=== PATIENT | female | born 1995 | race Hispanic/Latino ===

== ENCOUNTER 2018-12-24 00:50 | Emergency (ER) | payer BC ==
[2018-12-24 01:12] VITALS: BP 108/69
[2018-12-24 01:45] LABS: Mean Corpuscular HGB Conc 34 % (30-34); Mean Corpuscular Volume 93 fl (79-97); Platelet Count 167 K/mm3 (140-440); Red Blood Count 4.09 M/mm3 (3.65-5.03); Red Cell Distribution Width 12.3 % (13.2-15.2)
[2018-12-24 01:58] LABS: Bacteria,Urine 2+ /HPF (Negative); Bilirubin,Urine NEG (Negative); Blood,Urine SM (Negative); Color,Urine Amber (Yellow); Hyaline Casts,Urine 2 /LPF; Mucus,Urine 3+ /HPF
[2018-12-24 02:07] LABS: Alanine Aminotransferase 18 units/L (7-56); Albumin 4.4 g/dL (3.9-5); BUN/Creatinine Ratio 15; Blood Urea Nitrogen 12 mg/dL (7-17); Hemolysis Index 20
[2018-12-24 02:25] LABS: Total Cells Counted 100
[2018-12-24 02:26] LABS: RBC Morphology Normal
[2018-12-24] MEDS ORDERED: PEPCID IV ONE (03:20)
[2018-12-24] MEDS ORDERED: NACL 0.9% 1000 ML 1,000 ML IV ONE (03:20)
[2018-12-24] MEDS ORDERED: LOMOTIL PO ONE (03:20)
[2018-12-24] MEDS ORDERED: ZOFRAN IV ONE (03:20)
[2018-12-24] MEDS ORDERED: BENTYL IM ONE (03:21)
--- NOTE | 2018-12-24 05:07 | Emergency Department Report ---
ED N/V/D HPI - General Chief complaint: Abdominal Pain Stated complaint: ABDOMINAL PAIN Source: patient Mode of arrival: Ambulatory Limitations: No Limitations - History of Present Illness Initial comments: Patient is a nulliparous 23-year-old white female with no past medical history presents to the ED with complaint of acute onset persistent intermittent nausea, vomiting, diarrhea, sore throat and epigastric pain for the last 12 hours. Patient states that she is not been able to keep anything down because of persistent nausea and vomiting and diarrhea. Patient denies dizziness, lightheadedness, syncope, headache, chest pain, shortness of breath, cough, dysuria, urinary frequency and urgency, vaginal bleeding, hematemesis, hematuria diarrhea, vaginal discharge, change in vision or hematochezia. MD complaint: nausea, vomiting, diarrhea, abdominal pain -: Sudden, hour(s) (12) Description of Vomiting: food contents, watery, bilious Description of Diarrhea: water Associated Abdominal Pain: Yes (epigastric) Location: epigastric Radiation: none Severity: moderate Pain Scale: 6 Quality: cramping, aching, dull Consistency: intermittent Improves with: none Worsens with: eating, vomiting Context: possible food poisoning Associated Symptoms: myalgias, loss of appetite, malaise, nausea/vomiting, other (sore throat). denies: denies other symptoms, chest pain, cough, diaphoresis, fever/chills, headaches, rash, dysuria, shortness of breath, syncope, weakness - Related Data Previous Rx's Medication Instructions Recorded Last Taken Type Dicyclomine [Bentyl] 20 mg PO Q6H PRN #24 tablet 12/24/18 Unknown Rx Diphenoxylate/Atropine [Lomotil] 1 - 2 tab PO Q4H PRN #20 tablet 12/24/18 Unknown Rx Ondansetron [Zofran Odt] 4 mg PO Q6HR PRN #20 tab.rapdis 12/24/18 Unknown Rx raNITIdine HCl [Zantac] 150 mg PO Q12H #24 tablet 12/24/18 Unknown Rx Allergies Allergy/AdvReac Type Severity Reaction Status Date / Time cefdinir Allergy Dizziness Verified 12/24/18 01:08 ED Review of Systems ROS: Stated complaint: ABDOMINAL PAIN Other details as noted in HPI Constitutional: denies: chills, fever Eyes: denies: eye pain, eye discharge, vision change ENT: denies: ear pain, throat pain Respiratory: denies: cough, shortness of breath, wheezing Cardiovascular: denies: chest pain, palpitations Endocrine: no symptoms reported Gastrointestinal: abdominal pain, nausea, vomiting, diarrhea Genitourinary: denies: urgency, dysuria, discharge Musculoskeletal: denies: back pain, joint swelling, arthralgia Skin: denies: rash, lesions Neurological: denies: headache, weakness, paresthesias Psychiatric: denies: anxiety, depression Hematological/Lymphatic: denies: easy bleeding, easy bruising ED Past Medical Hx - Past Medical History Previous Medical History?: Yes Hx Kidney Stones: Yes - Surgical History Past Surgical History?: No - Social History Smoking Status: Never Smoker Substance Use Type: None - Medications Home Medications: Home Medications Medication Instructions Recorded Confirmed Last Taken Type Dicyclomine [Bentyl] 20 mg PO Q6H PRN #24 tablet 12/24/18 Unknown Rx Diphenoxylate/Atropine [Lomotil] 1 - 2 tab PO Q4H PRN #20 tablet 12/24/18 Unknown Rx Ondansetron [Zofran Odt] 4 mg PO Q6HR PRN #20 tab.rapdis 12/24/18 Unknown Rx raNITIdine HCl [Zantac] 150 mg PO Q12H #24 tablet 12/24/18 Unknown Rx ED Physical Exam - General Limitations: No Limitations General appearance: alert, in no apparent distress - Head Head exam: Present: atraumatic, normocephalic, normal inspection - Eye Eye exam: Present: normal appearance, PERRL, EOMI Pupils: Present: normal accommodation - ENT ENT exam: Present: normal exam, normal orophraynx, mucous membranes moist, TM's normal bilaterally, normal external ear exam - Neck Neck exam: Present: normal inspection, full ROM - Respiratory Respiratory exam: Present: normal lung sounds bilaterally. Absent: respiratory distress, wheezes, rales, stridor, chest wall tenderness, accessory muscle use, decreased breath sounds - Cardiovascular Cardiovascular Exam: Present: regular rate, normal rhythm, normal heart sounds. Absent: systolic murmur, diastolic murmur, rubs, gallop - GI/Abdominal GI/Abdominal exam: Present: soft, normal bowel sounds. Absent: tenderness, guarding, rebound, hyperactive bowel sounds, organomegaly - Rectal Rectal exam: Present: deferred - Bi-manual exam: Present: other (deferred) - Extremities Exam Extremities exam: Present: normal inspection, normal capillary refill - Back Exam Back exam: Present: normal inspection, full ROM. Absent: CVA tenderness (L), muscle spasm, paraspinal tenderness, vertebral tenderness - Neurological Exam Neurological exam: Present: alert, oriented X3, CN II-XII intact, normal gait, reflexes normal - Psychiatric Psychiatric exam: Present: normal affect, normal mood - Skin Skin exam: Present: warm, dry, intact, normal color. Absent: rash ED Course Vital Signs 12/24/18 00:55 Temperature 97.3 F L Pulse Rate 80 Respiratory 14 Rate Blood Pressure 108/69 O2 Sat by Pulse 100 Oximetry - Reevaluation(s) Reevaluation #1: 12/24/18 05:05 This is a 23-year-old female who presented to the ED with acute onset persistent nausea, vomiting, diarrhea and epigastric pain for 12 hours intermittently. In the ED, patient is alert and oriented 3 and is not in distress. Lab test results were reviewed and are unremarkable except for acute leukocytosis of 13,300. Patient was treated for pain in the ED, also given medicine for nausea and vomiting and 1 L normal saline IV bolus as well as antacids. On reevaluation, patient nausea and vomiting as well as epigastric pain has resolved, patient passed oral fluid challenge in the ED. Patient was discharged home on medications and advised to maintain a clear liquid diet for 12-24 hours and to follow-up with her primary care physician in 5-7 days for reevaluation or return to the ED immediately if symptoms get worse. 12/24/18 05:06 ED Medical Decision Making - Lab Data Result diagrams: 12/24/18 01:12 12/24/18 01:12 - Medical Decision Making This is a 23-year-old female who presented to the ED with acute onset persistent nausea, vomiting, diarrhea and epigastric pain for 12 hours intermittently. In the ED, patient is alert and oriented 3 and is not in distress. Lab test results were reviewed and are unremarkable except for acute leukocytosis of 13,300. Patient was treated for pain in the ED, also given medicine for nausea and vomiting and 1 L normal saline IV bolus as well as antacids. On reevaluation, patient nausea and vomiting as well as epigastric pain has resolved, patient passed oral fluid challenge in the ED. Patient was discharged home on medications and advised to maintain a clear liquid diet for 12-24 hours and to follow-up with her primary care physician in 5-7 days for reevaluation or return to the ED immediately if symptoms get worse. - Differential Diagnosis Viral gastroenteritis; vomiting, diarrhea, GERD, abdominal pain, UTI Critical care attestation.: If time is entered above; I have spent that time in minutes in the direct care of this critically ill patient, excluding procedure time. ED Disposition Clinical Impression: Viral gastroenteritis, Nausea, vomiting and diarrhea Abdominal pain Qualifiers: Abdominal location: epigastric Qualified Code(s): R10.13 - Epigastric pain Disposition: TO HOME OR SELFCARE Is pt being admited?: No Does the pt Need Aspirin: No Condition: Stable Instructions: Abdominal Pain (ED), Acute Nausea and Vomiting (ED), Gastroenteritis (ED) Additional Instructions: Maintain a clear liquid diet for 12-24 hours, take medication with food, drink plenty of fluids and follow up with your primary care physician in 5-7 days for reevaluation. Return to the ED immediately if symptoms get worse. Prescriptions: Dicyclomine [Bentyl] 20 mg PO Q6H PRN #24 tablet PRN Reason: Pain , Severe (7-10) Diphenoxylate/Atropine [Lomotil] 1 - 2 tab PO Q4H PRN #20 tablet PRN Reason: Diarrhea raNITIdine HCl [Zantac] 150 mg PO Q12H #24 tablet Ondansetron [Zofran Odt] 4 mg PO Q6HR PRN #20 tab.rapdis PRN Reason: Nausea Referrals: PRIMARY CARE,MD [Primary Care Provider] - 3-5 Days Forms: Work/School Release Form(ED) Time of Disposition: 05:12 Print Language: CZECH
== END 2018-12-24 05:35 | disposition home or self-care (01) ==
LOC: ED 00:50
DX: A08.4 Viral intestinal infection, unspecified (principal); Z87.442 Personal history of urinary calculi; Z88.8 Allergy status to other drugs, medicaments and biological substances
CPT/HCPCS: 36415; 80053; 81001; 83690; 84703; 85007; 85025; 86308; 87116; 87430; 96372; 96374; 96375; 99283; J0500; J2405; J7030